=== PATIENT | female | born 1965 | race African-American/Black ===

== ENCOUNTER 2021-06-13 11:44 | Outpatient (CLI) | payer BC ==
[2021-06-13 23:15] LABS: SARS-CoV-2 PCR by NAA Not Detected (NotDetected)
== END 2021-06-13 11:45 | disposition home or self-care (01) ==
LOC: EDBD 11:44 → CSHLAB 11:44
PROVIDERS: ATTEND Surgery
DX: Z20.822 Contact with and (suspected) exposure to COVID-19 (principal)
CPT/HCPCS: U0003; U0005

== ENCOUNTER 2021-07-02 05:59 | Day surgery (SDC) | payer BC ==
[2021-07-01 09:36] VITALS: BMI 38.7
[2021-07-02] MEDS ORDERED: Lidocaine 1% MPF 2 ML VIAL ONE (06:45)
[2021-07-02] MEDS ORDERED: Fentanyl 100 MCG/2 ML VIAL ONE (07:52)
[2021-07-02] MEDS ORDERED: PROPOFOL 60 ML ONE (07:52)
[2021-07-02] MEDS ORDERED: Lidocaine 1% PF 5 ML VIAL ONE (07:55)
[2021-07-02] MEDS ORDERED: PROPOFOL 20 ML ONE ×2 (09:44→09:59)
== END 2021-07-02 10:46 | disposition home or self-care (01) ==
LOC: EDBD → CSHSDC 05:59 → EDBD 09:30 → CSHSDC 10:46
PROVIDERS: ATTEND Surgery
PROC: 0DB68ZZ Excision of Stomach, Via Natural or Artificial Opening Endoscopic (ICD-10-PCS; principal; 2021-07-02)
PROC: 0DJD8ZZ Inspection of Lower Intestinal Tract, Via Natural or Artificial Opening Endoscopic (ICD-10-PCS; principal; 2021-07-02)
DX: Z12.11 Encounter for screening for malignant neoplasm of colon (principal); K21.9 Gastro-esophageal reflux disease without esophagitis; Z98.84 Bariatric surgery status; E66.01 Morbid (severe) obesity due to excess calories; K29.70 Gastritis, unspecified, without bleeding; K57.30 Diverticulosis of large intestine without perforation or abscess without bleeding
CPT/HCPCS: 88305; J2704; J3010